=== PATIENT | female | born 1990 | race Caucasian/White ===

== ENCOUNTER 2017-06-20 22:09 | Emergency (ER) | payer SELFPAY ==
[~2017-06-20] VITALS: Ht 152.4 cm; Wt 52.5 kg
[2017-06-20 22:24] VITALS: Ht 152.4 cm; Wt 52.5 kg
== END 2017-06-21 00:52 | disposition left against medical advice (07) ==
LOC: FTE 22:09
DX: Z53.21 Procedure and treatment not carried out due to patient leaving prior to being seen by health care provider (principal)